=== PATIENT | male | born 1985 | race Caucasian/White ===

== ENCOUNTER → 2018-04-09 | Outpatient (CLI) | payer OTHER | LOC: COL.RAD 10:40 | DX: M25.531 Pain in right wrist (principal) ==

== ENCOUNTER → 2018-04-19 | Outpatient (CLI) | payer OTHER | LOC: COL.RAD 13:29 | DX: S63.591A Other specified sprain of right wrist, initial encounter (principal); R25.1 Tremor, unspecified ==